=== PATIENT | male | born 1985 | race Caucasian/White ===

== ENCOUNTER 2016-07-27 22:10 | Emergency (ER) | payer OTHER ==
[~2016-07-27] VITALS: Ht 187.9 cm; Wt 108.9 kg
[2016-07-27] MEDS ORDERED: TRAZODONE100 MG PO (22:20)
[2016-07-27] MEDS ORDERED: PROZAC40 M1 PO (22:20)
== END 2016-07-27 23:03 | disposition home or self-care (01) ==
LOC: ED 22:10
DX: S61.411A Laceration without foreign body of right hand, initial encounter (principal); W26.0XXA Contact with knife, initial encounter; Y93.G1 Activity, food preparation and clean up; Y92.9 Unspecified place or not applicable; Y99.9 Unspecified external cause status

== ENCOUNTER 2016-11-11 21:50 | Emergency (ER) | payer OTHER ==
[~2016-11-11] VITALS: Ht 185.4 cm; Wt 108.9 kg
[~2016-11-11 21:50] MED LIST: PROZAC40 M1 PO; TRAZODONE100 MG PO
[2016-11-11 22:31] LABS: BILIRUBIN 1+ (NEGATIVE); BLOOD NEGATIVE (NEGATIVE); CLARITY CLEAR (CLEAR); COLOR YELLOW (YELLOW); GLUCOSE NEGATIVE (NEGATIVE); KETONE TRACE (NEGATIVE); LEUKO ESTERASE NEGATIVE (NEGATIVE); NITRITE NEGATIVE (NEGATIVE); SPECIFIC GRAVITY 1.025 (1.005-1.030)
[2016-11-11 22:45] LABS: BACTERIA TRACE; EPITHELIAL CELLS 0-2; WBC 0-2 wbc/hpf (0-5)
[2016-11-12] MEDS ORDERED: VIBRAMYCIN100 MG PO (01:13)
[2016-11-12] MEDS ORDERED: ANAPROX DS550 MG PO (01:13)
== END 2016-11-12 01:33 | disposition home or self-care (01) ==
LOC: ED 21:50
PROVIDERS: Physician Assistant
DX: N43.3 Hydrocele, unspecified (principal); N50.811 Right testicular pain; N50.812 Left testicular pain; Z79.899 Other long term (current) drug therapy

== ENCOUNTER 2017-02-22 09:56 | Emergency (ER) | payer OTHER ==
[~2017-02-22] VITALS: Wt 108.9 kg
[~2017-02-22 09:56] MED LIST changes: +ANAPROX DS550 MG PO; +VIBRAMYCIN100 MG PO
[2017-02-22] MEDS ORDERED: Motrin,Rufen800 MG PO (11:00)
== END 2017-02-22 11:04 | disposition home or self-care (01) ==
LOC: ED 09:56
DX: S60.221A Contusion of right hand, initial encounter (principal); F10.10 Alcohol abuse, uncomplicated; Z79.899 Other long term (current) drug therapy; W22.01XA Walked into wall, initial encounter; Y93.89 Activity, other specified; Y92.89 Other specified places as the place of occurrence of the external cause; Y99.8 Other external cause status

== ENCOUNTER 2019-12-23 22:52 | Emergency (ER) | payer OTHER ==
[~2019-12-23] VITALS: Ht 185.4 cm; Wt 108.9 kg
[~2019-12-23 22:52] MED LIST changes: +Motrin,Rufen800 MG PO
[2019-12-24 00:18] LABS: BASO % 0.3 % (0.0-1.0); EOS % 0.3 % (1.0-4.0); HEMATOCRIT 46.2 % (42.0-52.0); LYMPH # 1.7 10*3/uL (1.3-4.4); LYMPH % 19.8 % (27.0-41.0); MEAN CELL VOLUME 85.2 fl (80.0-94.0); MEAN CORPUSCULAR HGB 29.3 pg (27.0-31.0); MEAN CORPUSCULAR HGB CONC 34.4 g/dl (33.0-37.0); MEAN PLATELET VOLUME 8.4 fl (9.6-12.3); MONO # 0.4 10*3/uL (0.1-1.0); MONO % 4.1 % (3.0-9.0); NEUT # 6.6 10*3/uL (2.3-7.9); NEUT % 75.2 % (47.0-73.0); PLATELET COUNT AUTOMATED 282 10*3/uL (130-400); RED BLOOD COUNT 5.42 10*6/uL (4.50-5.90); RED CELL DISTRI WIDTH 11.3 % (0-14.5); WHITE BLOOD COUNT 8.8 10*3/uL (4.8-10.8)
[2019-12-24 00:34] LABS: ALBUMIN 4.2 gm/dl (3.1-4.5); ALKALINE PHOSPHATASE 102 U/L (45-117); BUN 7 mg/dl (7-24); CHLORIDE 106 mmol/L (98-107); CREATININE 1.06 mg/dL (0.70-1.30); POTASSIUM 3.7 mmol/L (3.5-5.1); SGOT/AST 43 IU/L (3-35); SGPT/ALT 84 U/L (12-78); SODIUM 141 mmol/L (136-145); TOTAL PROTEIN 8.2 gm/dL (6.4-8.2)
[2019-12-24 01:14] LABS: BILIRUBIN Negative (Negative); BLOOD Negative (Negative); COLOR Yellow (Yellow); GLUCOSE Negative (Negative); KETONE Negative (Negative); LEUKO ESTERASE Negative (Negative); NITRITE Negative (Negative); SPECIFIC GRAVITY <= 1.005 (1.001-1.030); UROBILINOGEN 0.2 E.U./dl (0.0-1.0)
[2019-12-24 01:18] LABS: CLARITY Clear (Clear)
[2019-12-24 01:20] LABS: RBC 0-2 rbc/hpf (0-2)
[2019-12-24 01:22] LABS: URINE AMPHETAMINES < 1000 (1000ng/ml); URINE BARBITURATES < 200 (200ng/ml); URINE BENZODIAZEPINES < 200 (200ng/ml); URINE CANNABINOIDS (THC) < 50 (50ng/ml); URINE COCAINE < 300 (300ng/ml); URINE METHADONE < 300 (300ng/ml); URINE OPIATES < 300 (300ng/ml)
[2019-12-24 01:23] LABS: URINE PHENCYCLIDINE < 25 (25ng/ml)
== END 2019-12-24 02:36 | disposition home or self-care (01) ==
LOC: ED 22:52
PROVIDERS: Emergency Medicine Emergency Medical Services
DX: S01.02XA Laceration with foreign body of scalp, initial encounter (principal); S01.81XA Laceration without foreign body of other part of head, initial encounter; Z79.899 Other long term (current) drug therapy; X58.XXXA Exposure to other specified factors, initial encounter; Y93.89 Activity, other specified; Y92.89 Other specified places as the place of occurrence of the external cause; Y99.8 Other external cause status

== ENCOUNTER 2019-12-25 08:47 | Emergency (ER) | payer OTHER | END 2019-12-25 10:04 | disposition home or self-care (01) | LOC: ED 08:47 | DX: S60.222A Contusion of left hand, initial encounter (principal); Z79.899 Other long term (current) drug therapy; V49.9XXA Car occupant (driver) (passenger) injured in unspecified traffic accident, initial encounter; Y93.89 Activity, other specified; Y92.89 Other specified places as the place of occurrence of the external cause; Y99.8 Other external cause status ==

== ENCOUNTER → 2021-03-14 | Outpatient (CLI) | payer OTHER | END | disposition home or self-care (01) | LOC: MRI 08:58 | PROVIDERS: ATTEND Internal Medicine | DX: M75.52 Bursitis of left shoulder (principal); R60.9 Edema, unspecified; M25.512 Pain in left shoulder ==

== ENCOUNTER → 2021-04-08 | Outpatient (CLI) | payer BC ==
[2021-04-08 10:53] LABS: BUN 15 mg/dl (7-24); CHLORIDE 105 mmol/L (98-107); CREATININE 1.03 mg/dL (0.70-1.30); POTASSIUM 3.9 mmol/L (3.5-5.1); SODIUM 138 mmol/L (136-145)
[2021-04-08 11:01] LABS: FREE T4 0.89 ng/dl (0.76-1.46)
== END | disposition home or self-care (01) ==
LOC: LAB 09:32
PROVIDERS: ATTEND Nurse Practitioner
DX: F39 Unspecified mood [affective] disorder (principal); F33.1 Major depressive disorder, recurrent, moderate; F41.1 Generalized anxiety disorder

== ENCOUNTER 2022-07-24 08:48 | Emergency (ER) | payer BC ==
[~2022-07-24] VITALS: Ht 185.4 cm; Wt 102.1 kg
== END 2022-07-24 09:39 | disposition home or self-care (01) ==
LOC: ED 08:48
DX: S42.434A Nondisplaced fracture (avulsion) of lateral epicondyle of right humerus, initial encounter for closed fracture (principal); M25.721 Osteophyte, right elbow; F32.A Depression, unspecified; W19.XXXA Unspecified fall, initial encounter; Y93.89 Activity, other specified; Y92.89 Other specified places as the place of occurrence of the external cause; Y99.8 Other external cause status

== ENCOUNTER 2022-08-04 19:03 | Emergency (ER) | payer BC ==
[~2022-08-04] VITALS: Ht 185.4 cm; Wt 86.2 kg
[2022-08-04] MEDS ORDERED: METHOCARBAMOL750 M1 PO (19:44)
[2022-08-04] MEDS ORDERED: NAPROSYN500 MG PO (19:44)
== END 2022-08-04 19:57 | disposition home or self-care (01) ==
LOC: ED 19:03
DX: R07.89 Other chest pain (principal); F32.A Depression, unspecified

== ENCOUNTER 2022-08-28 20:53 | Emergency (ER) | payer BC ==
[~2022-08-28] VITALS: Ht 185.4 cm; Wt 96.6 kg
[~2022-08-28 20:53] MED LIST changes: +METHOCARBAMOL750 M1 PO; +NAPROSYN500 MG PO
[2022-08-28] MEDS ORDERED: VIBRAMYCIN100 MG PO (21:14)
[2022-08-28] MEDS ORDERED: Bactroban Oint22 GM T (21:14)
== END 2022-08-28 21:18 | disposition home or self-care (01) ==
LOC: ED 20:53
DX: H60.391 Other infective otitis externa, right ear (principal); F32.A Depression, unspecified; Z79.899 Other long term (current) drug therapy

== ENCOUNTER 2023-06-04 15:45 | Emergency (ER) | payer BC ==
[~2023-06-04] VITALS: Ht 185.4 cm; Wt 89.4 kg
[~2023-06-04 15:45] MED LIST changes: +Bactroban Oint22 GM T
[2023-06-04] MEDS ORDERED: Motrin,Rufen800 MG PO (16:35)
== END 2023-06-04 16:41 | disposition home or self-care (01) ==
LOC: ED 15:45
DX: S90.32XA Contusion of left foot, initial encounter (principal); F32.A Depression, unspecified; W20.8XXA Other cause of strike by thrown, projected or falling object, initial encounter; Y93.89 Activity, other specified; Y92.89 Other specified places as the place of occurrence of the external cause; Y99.8 Other external cause status

== ENCOUNTER 2024-04-06 15:50 | Emergency (ER) | payer BC ==
[~2024-04-06] VITALS: Ht 185.4 cm; Wt 88.5 kg
[2024-04-06 17:22] LABS: BILIRUBIN Negative (Negative); BLOOD Negative (Negative); CLARITY Clear (Clear); COLOR Yellow (Yellow); GLUCOSE Negative (Negative); KETONE Negative (Negative); LEUKO ESTERASE Negative (Negative); NITRITE Negative (Negative); SPECIFIC GRAVITY <= 1.005 (1.001-1.030); UROBILINOGEN 0.2 E.U./dl (0.0-1.0)
[2024-04-06 17:37] LABS: WBC 0-2 wbc/hpf (0-5)
== END 2024-04-06 17:38 | disposition home or self-care (01) ==
LOC: ED 15:50
PROVIDERS: Physician Assistant Medical
DX: N43.3 Hydrocele, unspecified (principal)